=== PATIENT | female | born 1955 | race Caucasian/White ===

== ENCOUNTER 2019-12-02 18:01 | Emergency (ER) | payer OTHER ==
[~2019-12-02] VITALS: Ht 165.1 cm; Wt 61.2 kg
[2019-12-02] MEDS ORDERED: ONDANSETRON HCL4 M2 PO (20:18)
[2019-12-02] MEDS ORDERED: NORCO 5-325 TA1 EAC1 PO (20:18)
[2019-12-02] MEDS ORDERED: CYCLOBENZAPRINE5 MG PO (20:18)
[2019-12-02] MEDS ORDERED: LISINOPRIL10 MG PO (20:18)
[2019-12-02 23:43] VITALS: BP 148/97
== END 2019-12-02 20:30 | disposition home or self-care (01) ==
LOC: ER 18:01
DX: S09.8XXA Other specified injuries of head, initial encounter (principal); S16.1XXA Strain of muscle, fascia and tendon at neck level, initial encounter; Z90.49 Acquired absence of other specified parts of digestive tract; V49.9XXA Car occupant (driver) (passenger) injured in unspecified traffic accident, initial encounter; Y93.89 Activity, other specified; Y92.89 Other specified places as the place of occurrence of the external cause; Y99.8 Other external cause status